=== PATIENT | female | born 1945 | race Two or more races ===

== ENCOUNTER 2018-12-15 09:30 | Observation (INO) | payer MEDICARE, OTHER ==
[2018-12-15] MEDS: LACTATED RINGER'S 1,000 ML IV* (10:59)
[2018-12-15] MEDS ORDERED: CEFAZOLIN 2 GM/50 ML (PMX) 50 ML IVPB (11:00)
[2018-12-15] MEDS ORDERED: PROPOFOL 20 ML (11:57)
[2018-12-15] MEDS ORDERED: MIDAZOLAM 1 MG/ML 2 ML INJ (11:57)
[2018-12-15] MEDS ORDERED: ROCURONIUM 50 MG INJ ×2 (11:57→12:11)
[2018-12-15] MEDS ORDERED: FENTAnyl 50 MCG/ML VIAL (11:57)
[2018-12-15] MEDS ORDERED: CEFAZOLIN 1 GM INJ (11:57)
[2018-12-15] MEDS ORDERED: ONDANSETRON 4 MG INJ (12:11)
[2018-12-15] MEDS ORDERED: METOCLOPRAMIDE 10 MG INJ (12:11)
[2018-12-15] MEDS ORDERED: DEXAMETHASONE 4 MG/ML 5 ML INJ (12:11)
[2018-12-15] MEDS: BUPIVACAINE 0.5%/EPI (SDV) 30 ML INJ (12:42)
[2018-12-15] MEDS: THROMBIN (BOVINE) 5,000 UNIT VIAL TP ×3 (12:43→15:15)
[2018-12-15] MEDS: POLYMYXIN/BACITRACIN 1L IRRIG (12:43)
[2018-12-15] MEDS: SURGIFOAM POWDER 1 GM KIT ×2 (12:43→15:20)
[2018-12-15] MEDS ORDERED: PHENYLephrine 10 MG INJ (12:59)
[2018-12-15] MEDS ORDERED: LABETALOL HCL 20MG INJ IV (13:00)
[2018-12-15] MEDS ORDERED: EPHEDrine 25 MG/5 ML SYG (13:00)
[2018-12-15] MEDS ORDERED: MEPERIDINE 25 MG INJ IV (13:00)
[2018-12-15] MEDS ORDERED: DIPHENHYDRAMINE 50 MG INJ IV (13:00)
[2018-12-15] MEDS ORDERED: ALBUMIN HUMAN 5% 250 ML IV (13:00)
[2018-12-15] MEDS ORDERED: EPHEDrine SULFATE 50 MG/5 ML SYG IV (13:00)
[2018-12-15] MEDS ORDERED: HYDROmorphONE 1 MG/5 ML IV SYRINGE IV (13:00)
[2018-12-15] MEDS ORDERED: hydrALAzine 20 MG INJ IV (13:00)
[2018-12-15] MEDS ORDERED: FENTAnyl 50 MCG/ML VIAL IV ×3 (13:00)
[2018-12-15] MEDS ORDERED: METOCLOPRAMIDE 10 MG INJ IV (13:00)
[2018-12-15] MEDS: GELATIN SIZE 100 SPONGE (13:44)
[2018-12-15] MEDS: ALBUMIN HUMAN 5% 250 ML (14:12)
[2018-12-15] MEDS ORDERED: SUGAMMADEX SODIUM 200 MG/2 ML VIAL IV (15:27)
[2018-12-15] MEDS ORDERED: NALOXONE (0.4 MG/ML) INJ IV (15:30)
[2018-12-15] MEDS ORDERED: ACETAMINOPHEN 325 MG TAB PO (15:30)
[2018-12-15] MEDS ORDERED: ONDANSETRON 4 MG INJ IV (15:30)
[2018-12-15] MEDS ORDERED: HYDROCODONE/APAP (5/325) TAB PO (15:30)
[2018-12-15] MEDS ORDERED: NACL 0.9% 3 ML SYG IV (15:30)
[2018-12-15] MEDS ORDERED: PROCHLORPERAZINE 10 MG TAB PO (15:30)
[2018-12-15] MEDS ORDERED: HYDROmorphONE 0.5 MG/0.5 ML SYG IV (16:00)
[2018-12-15] MEDS: HYDROmorphONE 1 MG/5 ML IV SYRINGE IV ×2 (16:00→16:07)
[2018-12-15] MEDS: OXYCODONE/ACETAMINOPHEN (5/325) TAB PO (16:51)
[2018-12-15] MEDS: ONDANSETRON 4 MG INJ IV (16:51)
[2018-12-15] MEDS: CEFAZOLIN 1 GM/50 ML (PMX) 50 ML IVPB ×2 (17:43→23:01)
[2018-12-15] MEDS: LORAZEPAM 2 MG INJ IV (21:52)
[2018-12-16 05:14] LABS: HEMATOCRIT 35.7 % (37.0-47.0); HEMOGLOBIN 11.9 g/dl (12.0-16.0)
[2018-12-16] MEDS: CEFAZOLIN 1 GM/50 ML (PMX) 50 ML IVPB ×2 (05:14→11:58)
[2018-12-16 05:39] LABS: ANION GAP 8 (5-13); BLOOD UREA NITROGEN 15 mg/dl (7-20); CALCIUM 9.6 mg/dl (8.4-10.2); CARBON DIOXIDE 30 mmol/L (21-31); CHLORIDE 104 mmol/L (97-110); CREATININE 0.58 mg/dl (0.44-1.00); GLUCOSE 180 mg/dl (70-220); POTASSIUM 4.2 mmol/L (3.5-5.1); SODIUM 142 mmol/L (135-144)
[2018-12-16] MEDS: HYDROCODONE/APAP (5/325) TAB PO ×2 (08:49→17:50)
[2018-12-16] MEDS: GABAPENTIN 300 MG CAP PO ×3 (09:57→21:00)
[2018-12-16] MEDS: AMLODIPINE 5 MG TAB PO (09:57)
[2018-12-16] MEDS: ATENOLOL 50 MG TAB PO ×2 (09:57→20:28)
[2018-12-16] MEDS: SOD CHLORIDE 0.9% 1,000 ML IV ×2 (10:00→20:59)
[2018-12-16] MEDS: RANITIDINE 150 MG TAB PO (21:00)
[2018-12-16] MEDS: ATORVASTATIN 80 MG TAB PO (21:00)
[2018-12-17] MEDS: SOD CHLORIDE 0.9% 1,000 ML IV (05:00)
[2018-12-17 05:26] LABS: ADD MAN DIFF? NO
[2018-12-17 05:32] LABS: WHITE BLOOD COUNT 14.1 10^3/ul (4.8-10.8)
[2018-12-17 05:32] LABS: BASOPHILS % 0.1 % (0.0-2.0); HEMATOCRIT 32.7 % (37.0-47.0); HEMOGLOBIN 10.6 g/dl (12.0-16.0); LYMPHOCYTES # 1.1 10^3/ul (0.8-2.9); LYMPHOCYTES % 7.8 % (15.0-51.0); MEAN CORPUSCULAR HEMOGLOBIN 28.7 pg (29.0-33.0); MEAN CORPUSCULAR HGB CONC 32.4 g/dl (32.0-37.0); MEAN CORPUSCULAR VOLUME 88.6 fl (82.0-101.0); MEAN PLATELET VOLUME 9.2 fl (7.4-10.4); MONOCYTES % 7.4 % (0.0-11.0); NEUTROPHIL # 11.8 10^3/ul (1.6-7.5); NEUTROPHILS % 84.1 % (39.0-77.0); PLATELET COUNT 208 10^3/UL (140-415); RED BLOOD COUNT 3.69 10^6/ul (4.20-5.40); RED CELL DISTRIBUTION WIDTH 12.6 % (11.5-14.5)
[2018-12-17 05:51] LABS: ANION GAP 4 (5-13); BLOOD UREA NITROGEN 18 mg/dl (7-20); CALCIUM 8.5 mg/dl (8.4-10.2); CARBON DIOXIDE 30 mmol/L (21-31); CHLORIDE 107 mmol/L (97-110); CREATININE 0.58 mg/dl (0.44-1.00); GLUCOSE 125 mg/dl (70-220); MAGNESIUM 2.2 mg/dl (1.7-2.5); PHOSPHORUS 2.6 mg/dl (2.5-4.9); POTASSIUM 4.4 mmol/L (3.5-5.1); SODIUM 141 mmol/L (135-144)
[2018-12-17] MEDS: HYDROCODONE/APAP (5/325) TAB PO (06:55)
[2018-12-17] MEDS: AMLODIPINE 5 MG TAB PO (08:58)
[2018-12-17] MEDS: ATENOLOL 50 MG TAB PO (08:59)
[2018-12-17] MEDS: GABAPENTIN 300 MG CAP PO ×2 (09:00→13:02)
== END 2018-12-17 15:30 | disposition home or self-care (01) ==
LOC: SDS 09:30 → REC 15:31 → MS1 17:06
DX: M48.07 Spinal stenosis, lumbosacral region (principal); M51.16 Intervertebral disc disorders with radiculopathy, lumbar region; M48.062 Spinal stenosis, lumbar region with neurogenic claudication; M51.17 Intervertebral disc disorders with radiculopathy, lumbosacral region; I10 Essential (primary) hypertension; F32.9 Major depressive disorder, single episode, unspecified; E78.5 Hyperlipidemia, unspecified
CPT/HCPCS: 63030; 72100; 80048; 83735; 84100; 85014; 85018; 85025; 86850; 86900; 86901; 88304; 97116; 97162; 97530